=== PATIENT | female | born 1960 | race Caucasian/White ===

== ENCOUNTER 2021-06-26 07:10 | Day surgery (SDC) | payer BC ==
[~2021-06-26 07:10] MED LIST: ASPIRIN LOW81 M1 PO; COZAAR100 MG PO; DENIES CURRENT MEDS; LIPITOR20 M1 PO; LOPRESSOR25 MG PO; LOSARTAN POT50 MG PO; LOSARTAN/HCT1 TA1 PO; LYRICA75 MG PO; METOPROL TAR25 MG PO; NORVASC5 M1 PO; OMEPRAZOLE20 MG PO; PREGABALIN75 MG PO; TRAMADOL HCL50 MG PO; TRAMADOL HYDROC50 M1 PO; TRAZODONE100 MG PO; VENLAFAXINE150 M1 PO; ZOFRAN ODT4 MG PO; ZOFRAN4 MG/TAB PO
[2021-06-26 09:03] VITALS: BP 121/67
== END 2021-06-26 09:20 | disposition home or self-care (01) | DRG 951 ==
LOC: ENDO 07:10 → ORM 11:30 → ENDO 11:30
PROVIDERS: ATTEND Surgery
PROC: 0DBG8ZX Excision of Left Large Intestine, Via Natural or Artificial Opening Endoscopic, Diagnostic (ICD-10-PCS; principal; 2021-06-26)
PROC: 0DBN8ZX Excision of Sigmoid Colon, Via Natural or Artificial Opening Endoscopic, Diagnostic (ICD-10-PCS; 2021-06-26)
DX: Z12.11 Encounter for screening for malignant neoplasm of colon (principal); D12.4 Benign neoplasm of descending colon; K63.5 Polyp of colon; I10 Essential (primary) hypertension; R13.10 Dysphagia, unspecified; F17.210 Nicotine dependence, cigarettes, uncomplicated